=== PATIENT | male | born 1965 | race Caucasian/White ===

== ENCOUNTER 2017-01-04 23:11 | Observation (INO) | payer MEDICAID, MEDICARE ==
[~2017-01-04] VITALS: Ht 177.8 cm; Wt 120.2 kg
[~2017-01-04 23:11] MED LIST: AMLO10TA4 PO; ASPI-515 PO; CLOP75TA22 PO; LISI-170 PO; METO25TA9 PO; OMEP40CA6 PO; SIMV80TA3 PO
[2017-01-04 23:48] LABS: HEMOGLOBIN 13.2 g/dL (13.7-18.0)
[2017-01-04 23:59] LABS: ASPARTATE AMINO TRANSFERASE 19 U/L (15-37); BLOOD UREA NITROGEN 19 mg/dL (7-18)
[2017-01-05 00:02] LABS: ACETAMINOPHEN < 2 mcg/mL (10-30)
[2017-01-05 01:03] LABS: DAU SCREEN DISCLAIMER
[2017-01-05] MEDS ORDERED: SODIUM CHLORIDE 0.9% 1,000 ML IV ONE (01:26)
[2017-01-05] MEDS ORDERED: POLYETHYLENE GLYCOL 17 GM PACKET PO PRN (02:30)
[2017-01-05] MEDS ORDERED: DOCUSATE 100 MG CAPSULE PO PRN (02:30)
[2017-01-05] MEDS ORDERED: BISACODYL 10 MG SUPP PR PRN (02:30)
[2017-01-05 07:05] VITALS: BP 156/77
[2017-01-05] MEDS: AMLODIPINE 5 MG TABLET PO SCH (08:02)
[2017-01-05] MEDS: LISINOPRIL 20 MG TABLET PO SCH (08:03)
[2017-01-05] MEDS: METOPROLOL SUCCINATE 25 MG TAB.ER.24H PO SCH ×2 (08:03→19:45)
[2017-01-05] MEDS: NICOTINE 14MG/24 HR PATCH.TD24 TD SCH (08:03)
[2017-01-05] MEDS: OMEPRAZOLE 20 MG CAPSULE.DR PO SCH (08:03)
[2017-01-05 08:21] LABS: HEMOGLOBIN 12.5 g/dL (13.7-18.0)
[2017-01-05 17:50] VITALS: BP 149/89
[2017-01-05] MEDS: OXYcodone/APAP 5/325MG TABLET PO PRN ×3 (18:47→23:52)
[2017-01-05 19:03] VITALS: BP 134/89
[2017-01-05] MEDS: ATORVASTATIN 40 MG TABLET PO SCH (19:45)
[2017-01-06 01:55] VITALS: BP 151/88
[2017-01-06] MEDS: OXYcodone/APAP 5/325MG TABLET PO PRN ×4 (05:49→21:27)
[2017-01-06 06:46] VITALS: BP 158/87
[2017-01-06] MEDS: AMLODIPINE 5 MG TABLET PO SCH (08:47)
[2017-01-06] MEDS: OMEPRAZOLE 20 MG CAPSULE.DR PO SCH (08:47)
[2017-01-06] MEDS: METOPROLOL SUCCINATE 25 MG TAB.ER.24H PO SCH ×2 (08:47→21:00)
[2017-01-06] MEDS: LISINOPRIL 20 MG TABLET PO SCH (08:47)
[2017-01-06] MEDS: NICOTINE 14MG/24 HR PATCH.TD24 TD SCH (08:48)
[2017-01-06 13:00] VITALS: BP 141/95
[2017-01-06 16:18] VITALS: BP 153/88
[2017-01-06 19:31] VITALS: BP 158/88
[2017-01-06] MEDS: ATORVASTATIN 40 MG TABLET PO SCH (21:00)
[2017-01-06] MEDS: CYCLOBENZAPRINE 10 MG TABLET PO PRN (21:28)
[2017-01-07] MEDS: CYCLOBENZAPRINE 10 MG TABLET PO PRN ×3 (04:19→21:22)
[2017-01-07] MEDS: OXYcodone/APAP 5/325MG TABLET PO PRN ×3 (04:19→21:23)
[2017-01-07 08:01] VITALS: BP 124/83
[2017-01-07] MEDS: AMLODIPINE 5 MG TABLET PO SCH (08:49)
[2017-01-07] MEDS: OMEPRAZOLE 20 MG CAPSULE.DR PO SCH (08:50)
[2017-01-07] MEDS: LISINOPRIL 20 MG TABLET PO SCH (08:50)
[2017-01-07] MEDS: NICOTINE 14MG/24 HR PATCH.TD24 TD SCH (08:51)
[2017-01-07] MEDS: METOPROLOL SUCCINATE 25 MG TAB.ER.24H PO SCH ×2 (08:51→21:00)
[2017-01-07] MEDS ORDERED: RIVAROXABAN 20 MG TABLET PO SCH (17:00)
[2017-01-07 19:37] VITALS: BP 110/70
[2017-01-07] MEDS: ATORVASTATIN 40 MG TABLET PO SCH (21:00)
[2017-01-08 07:17] VITALS: BP 145/85
[2017-01-08] MEDS: AMLODIPINE 5 MG TABLET PO SCH (08:50)
[2017-01-08] MEDS: METOPROLOL SUCCINATE 25 MG TAB.ER.24H PO SCH ×2 (08:51→21:00)
[2017-01-08] MEDS: LISINOPRIL 20 MG TABLET PO SCH (08:51)
[2017-01-08] MEDS: NICOTINE 14MG/24 HR PATCH.TD24 TD SCH (08:51)
[2017-01-08] MEDS: OMEPRAZOLE 20 MG CAPSULE.DR PO SCH (08:51)
[2017-01-08] MEDS: RIVAROXABAN 15 MG TABLET PO SCH ×2 (10:00→21:00)
[2017-01-08] MEDS: CYCLOBENZAPRINE 10 MG TABLET PO PRN ×2 (11:00→22:05)
[2017-01-08] MEDS: OXYcodone/APAP 5/325MG TABLET PO PRN ×2 (11:00→22:06)
[2017-01-08 20:00] VITALS: BP 150/84
[2017-01-08] MEDS: ATORVASTATIN 40 MG TABLET PO SCH (21:00)
[2017-01-09 07:15] VITALS: BP 141/86
[2017-01-09] MEDS: AMLODIPINE 5 MG TABLET PO SCH (09:00)
[2017-01-09] MEDS: NICOTINE 14MG/24 HR PATCH.TD24 TD SCH (09:00)
[2017-01-09] MEDS: RIVAROXABAN 15 MG TABLET PO SCH (09:00)
[2017-01-09] MEDS: METOPROLOL SUCCINATE 25 MG TAB.ER.24H PO SCH (09:00)
[2017-01-09] MEDS: LISINOPRIL 20 MG TABLET PO SCH (09:00)
[2017-01-09] MEDS: OMEPRAZOLE 20 MG CAPSULE.DR PO SCH (09:06)
[2017-01-09] MEDS ORDERED: ENOXAPARIN 120MG/0.8ML SQ SCH ×2 (12:00→16:09)
[2017-01-09] MEDS ORDERED: HALOPERIDOL 5 MG/ML IM PRN (12:00)
[2017-01-09] MEDS ORDERED: LORazepam 2 MG/ML, 1ML IM PRN (12:00)
[2017-01-09] MEDS: LORazepam 1MG TABLET PO PRN ×2 (12:57→21:54)
[2017-01-09 13:41] LABS: BLOOD UREA NITROGEN 16 mg/dL (7-18)
[2017-01-09 13:44] LABS: ASPARTATE AMINO TRANSFERASE 11 U/L (15-37)
[2017-01-09 13:47] LABS: HEMOGLOBIN 13.8 g/dL (13.7-18.0)
[2017-01-09] MEDS: ONDANSETRON ODT 4 MG PO PRN (14:09)
[2017-01-09] MEDS: OXYcodone/APAP 5/325MG TABLET PO PRN ×2 (14:09→20:45)
[2017-01-09 14:17] LABS: DIFF TOTAL CELLS COUNTED 100 CELL DIFF
[2017-01-09 14:19] LABS: ANISOCYTOSIS 1+; VERIFY COUNTS? YES
[2017-01-09] MEDS: CYCLOBENZAPRINE 10 MG TABLET PO PRN (15:53)
[2017-01-09 17:51] VITALS: BP 140/82
[2017-01-09 19:10] VITALS: BP 144/80
[2017-01-09] MEDS: ATORVASTATIN 40 MG TABLET PO SCH (21:48)
[2017-01-09] MEDS: METOPROLOL TARTRATE 25 MG TABLET PO SCH (22:23)
[2017-01-10] MEDS ORDERED: ENOXAPARIN 120MG/0.8ML SQ SCH
[2017-01-10] MEDS: OXYcodone/APAP 5/325MG TABLET PO PRN ×2 (01:59→17:46)
[2017-01-10] MEDS: CYCLOBENZAPRINE 10 MG TABLET PO PRN ×2 (02:00→17:46)
[2017-01-10] MEDS: ALUMINUM/MAG/SIMETHICONE 30 ML UDC PO PRN (03:32)
[2017-01-10] MEDS: LORazepam 1MG TABLET PO PRN ×3 (05:20→20:30)
[2017-01-10] MEDS: ONDANSETRON ODT 4 MG PO PRN (08:22)
[2017-01-10] MEDS: METOPROLOL TARTRATE 25 MG TABLET PO SCH ×2 (08:23→20:25)
[2017-01-10] MEDS: METHOCARBAMOL 750 MG TABLET PO PRN (08:23)
[2017-01-10] MEDS: ENOXAPARIN 120MG/0.8ML SQ SCH ×2 (08:24→21:00)
[2017-01-10] MEDS: AMLODIPINE 5 MG TABLET PO SCH (08:38)
[2017-01-10] MEDS: LISINOPRIL 20 MG TABLET PO SCH (08:38)
[2017-01-10] MEDS: NICOTINE 14MG/24 HR PATCH.TD24 TD SCH (09:00)
[2017-01-10] MEDS: OMEPRAZOLE 20 MG CAPSULE.DR PO SCH (09:00)
[2017-01-10 09:12] VITALS: BP 136/82
[2017-01-10 09:41] VITALS: BP 122/68
[2017-01-10 19:45] VITALS: BP 130/89
[2017-01-10] MEDS: ATORVASTATIN 40 MG TABLET PO SCH (20:25)
[2017-01-11] MEDS: OXYcodone/APAP 5/325MG TABLET PO PRN ×3 (03:14→20:18)
[2017-01-11] MEDS: CYCLOBENZAPRINE 10 MG TABLET PO PRN ×3 (03:17→20:18)
[2017-01-11] MEDS: ALUMINUM/MAG/SIMETHICONE 30 ML UDC PO PRN (03:19)
[2017-01-11] MEDS: LISINOPRIL 20 MG TABLET PO SCH (08:26)
[2017-01-11] MEDS: METOPROLOL TARTRATE 25 MG TABLET PO SCH ×2 (08:26→20:16)
[2017-01-11] MEDS: OMEPRAZOLE 20 MG CAPSULE.DR PO SCH (08:26)
[2017-01-11] MEDS: ENOXAPARIN 120MG/0.8ML SQ SCH ×2 (08:26→20:17)
[2017-01-11] MEDS: AMLODIPINE 5 MG TABLET PO SCH (08:26)
[2017-01-11] MEDS: NICOTINE 14MG/24 HR PATCH.TD24 TD SCH (08:28)
[2017-01-11 08:56] VITALS: BP 145/91
[2017-01-11] MEDS: LORazepam 1MG TABLET PO PRN ×2 (14:57→21:54)
[2017-01-11 19:20] VITALS: BP 144/86
[2017-01-11] MEDS: ATORVASTATIN 40 MG TABLET PO SCH (20:16)
[2017-01-11 22:51] VITALS: BP 158/93
[2017-01-12] MEDS: OXYcodone/APAP 5/325MG TABLET PO PRN ×4 (00:48→20:36)
[2017-01-12 02:44] VITALS: BP 144/84
[2017-01-12 03:12] VITALS: BP 132/81
[2017-01-12] MEDS: LORazepam 1MG TABLET PO PRN ×2 (03:27→08:03)
[2017-01-12] MEDS: CYCLOBENZAPRINE 10 MG TABLET PO PRN ×2 (05:49→14:41)
[2017-01-12 05:53] VITALS: BP 143/83
[2017-01-12 07:39] VITALS: BP 127/77
[2017-01-12] MEDS: AMLODIPINE 5 MG TABLET PO SCH (08:02)
[2017-01-12] MEDS: LISINOPRIL 20 MG TABLET PO SCH (08:02)
[2017-01-12] MEDS: METOPROLOL TARTRATE 25 MG TABLET PO SCH ×2 (08:02→20:35)
[2017-01-12] MEDS: OMEPRAZOLE 20 MG CAPSULE.DR PO SCH (08:02)
[2017-01-12] MEDS: ENOXAPARIN 120MG/0.8ML SQ SCH ×2 (08:02→20:36)
[2017-01-12] MEDS: NICOTINE 14MG/24 HR PATCH.TD24 TD SCH (08:03)
[2017-01-12] MEDS ORDERED: HALOPERIDOL 5 MG TABLET PO PRN (08:30)
[2017-01-12 17:10] LABS: HEMOGLOBIN 12.6 g/dL (13.7-18.0)
[2017-01-12 17:11] LABS: DIFF TOTAL CELLS COUNTED 100 CELL DIFF
[2017-01-12 17:12] LABS: BLOOD UREA NITROGEN 13 mg/dL (7-18)
[2017-01-12 17:14] LABS: ANISOCYTOSIS 1+; VERIFY COUNTS? YES
[2017-01-12 17:16] LABS: IS PT STATUS REG ER OR PRE ER? NO
[2017-01-12 19:41] VITALS: BP 132/84
[2017-01-12] MEDS: ATORVASTATIN 40 MG TABLET PO SCH (20:35)
[2017-01-13] MEDS: CYCLOBENZAPRINE 10 MG TABLET PO PRN ×3 (00:08→19:37)
[2017-01-13] MEDS: LORazepam 1MG TABLET PO PRN ×2 (00:13→23:58)
[2017-01-13 00:14] VITALS: BP 129/87
[2017-01-13] MEDS: OXYcodone/APAP 5/325MG TABLET PO PRN ×5 (00:49→21:48)
[2017-01-13] MEDS ORDERED: OXYcodone IR 5MG TABLET PO ONE (04:30)
[2017-01-13] MEDS ORDERED: OXYcodone 5 MG/5 ML ORAL.SOL UDC PO PRN (04:30)
[2017-01-13 08:00] VITALS: BP 142/87
[2017-01-13] MEDS: LISINOPRIL 20 MG TABLET PO SCH (09:35)
[2017-01-13] MEDS: AMLODIPINE 5 MG TABLET PO SCH (09:35)
[2017-01-13] MEDS: METOPROLOL TARTRATE 25 MG TABLET PO SCH ×2 (09:35→19:37)
[2017-01-13] MEDS: ENOXAPARIN 120MG/0.8ML SQ SCH ×2 (09:36→19:39)
[2017-01-13] MEDS: OMEPRAZOLE 20 MG CAPSULE.DR PO SCH (09:36)
[2017-01-13] MEDS: NICOTINE 14MG/24 HR PATCH.TD24 TD SCH (09:38)
[2017-01-13] MEDS: AMOXICILLIN/CLAV 875-125MG TABLET PO SCH ×2 (10:40→19:37)
[2017-01-13] MEDS: DOXYCYCLINE 100MG TABLET PO SCH ×2 (11:15→19:37)
[2017-01-13 19:16] VITALS: BP 117/72
[2017-01-13] MEDS: ATORVASTATIN 40 MG TABLET PO SCH (19:37)
[2017-01-14] MEDS: OXYcodone/APAP 5/325MG TABLET PO PRN ×3 (02:48→19:25)
[2017-01-14] MEDS: METHOCARBAMOL 750 MG TABLET PO PRN (04:15)
[2017-01-14 05:52] LABS: HEMOGLOBIN 11.9 g/dL (13.7-18.0)
[2017-01-14 06:18] LABS: ASPARTATE AMINO TRANSFERASE 24 U/L (15-37); BLOOD UREA NITROGEN 16 mg/dL (7-18)
[2017-01-14 08:10] VITALS: BP 130/85
[2017-01-14] MEDS: AMLODIPINE 5 MG TABLET PO SCH (08:50)
[2017-01-14] MEDS: OMEPRAZOLE 20 MG CAPSULE.DR PO SCH (08:50)
[2017-01-14] MEDS: LISINOPRIL 20 MG TABLET PO SCH (08:50)
[2017-01-14] MEDS: METOPROLOL TARTRATE 25 MG TABLET PO SCH ×2 (08:51→19:21)
[2017-01-14] MEDS: AMOXICILLIN/CLAV 875-125MG TABLET PO SCH ×2 (08:51→19:21)
[2017-01-14] MEDS: DOXYCYCLINE 100MG TABLET PO SCH ×2 (08:51→19:21)
[2017-01-14] MEDS: NICOTINE 14MG/24 HR PATCH.TD24 TD SCH (09:00)
[2017-01-14] MEDS: ENOXAPARIN 120MG/0.8ML SQ SCH ×2 (09:00→20:36)
[2017-01-14 19:17] VITALS: BP 120/78
[2017-01-14] MEDS: ATORVASTATIN 40 MG TABLET PO SCH (19:21)
[2017-01-14] MEDS: CYCLOBENZAPRINE 10 MG TABLET PO PRN (20:36)
[2017-01-15 05:28] LABS: HEMOGLOBIN 12.6 g/dL (13.7-18.0)
[2017-01-15 07:55] VITALS: BP 123/86
[2017-01-15] MEDS: AMOXICILLIN/CLAV 875-125MG TABLET PO SCH ×2 (08:54→21:36)
[2017-01-15] MEDS: DOXYCYCLINE 100MG TABLET PO SCH ×2 (08:55→21:36)
[2017-01-15] MEDS: AMLODIPINE 5 MG TABLET PO SCH (08:55)
[2017-01-15] MEDS: LISINOPRIL 20 MG TABLET PO SCH (08:55)
[2017-01-15] MEDS: OMEPRAZOLE 20 MG CAPSULE.DR PO SCH (08:55)
[2017-01-15] MEDS: METOPROLOL TARTRATE 25 MG TABLET PO SCH ×2 (08:55→21:36)
[2017-01-15] MEDS: ENOXAPARIN 120MG/0.8ML SQ SCH ×2 (08:59→21:39)
[2017-01-15] MEDS: NICOTINE 14MG/24 HR PATCH.TD24 TD SCH (09:00)
[2017-01-15] MEDS: LACTOBACILLUS CHEW TABLET PO SCH ×2 (11:24→17:32)
[2017-01-15] MEDS: CYCLOBENZAPRINE 10 MG TABLET PO PRN ×2 (13:13→23:10)
[2017-01-15] MEDS: OXYcodone/APAP 5/325MG TABLET PO PRN ×2 (13:13→23:09)
[2017-01-15 19:27] VITALS: BP 128/75
[2017-01-15] MEDS: ATORVASTATIN 40 MG TABLET PO SCH (21:38)
[2017-01-16 08:27] VITALS: BP 100/65
[2017-01-16] MEDS: LACTOBACILLUS CHEW TABLET PO SCH ×3 (08:36→16:40)
[2017-01-16] MEDS: OMEPRAZOLE 20 MG CAPSULE.DR PO SCH (08:37)
[2017-01-16] MEDS: METOPROLOL TARTRATE 25 MG TABLET PO SCH ×2 (08:37→20:18)
[2017-01-16] MEDS: LISINOPRIL 20 MG TABLET PO SCH (08:37)
[2017-01-16] MEDS: AMOXICILLIN/CLAV 875-125MG TABLET PO SCH ×2 (08:38→20:18)
[2017-01-16] MEDS: AMLODIPINE 5 MG TABLET PO SCH (08:38)
[2017-01-16] MEDS: DOXYCYCLINE 100MG TABLET PO SCH ×2 (08:38→20:18)
[2017-01-16] MEDS: NICOTINE 14MG/24 HR PATCH.TD24 TD SCH (08:39)
[2017-01-16] MEDS: ENOXAPARIN 120MG/0.8ML SQ SCH ×2 (08:40→20:23)
[2017-01-16] MEDS: CYCLOBENZAPRINE 10 MG TABLET PO PRN (13:30)
[2017-01-16] MEDS: OXYcodone/APAP 5/325MG TABLET PO PRN ×2 (15:26→20:19)
[2017-01-16 19:24] VITALS: BP 106/75
[2017-01-16] MEDS: ATORVASTATIN 40 MG TABLET PO SCH (20:19)
[2017-01-17] MEDS: OXYcodone/APAP 5/325MG TABLET PO PRN ×3 (04:06→21:04)
[2017-01-17] MEDS: CYCLOBENZAPRINE 10 MG TABLET PO PRN ×3 (04:06→21:03)
[2017-01-17 07:50] VITALS: BP 122/81
[2017-01-17] MEDS: LACTOBACILLUS CHEW TABLET PO SCH ×3 (08:33→17:00)
[2017-01-17] MEDS: DOXYCYCLINE 100MG TABLET PO SCH ×2 (08:34→21:03)
[2017-01-17] MEDS: AMOXICILLIN/CLAV 875-125MG TABLET PO SCH ×2 (08:34→21:02)
[2017-01-17] MEDS: LISINOPRIL 20 MG TABLET PO SCH (08:34)
[2017-01-17] MEDS: METOPROLOL TARTRATE 25 MG TABLET PO SCH ×2 (08:35→21:03)
[2017-01-17] MEDS: OMEPRAZOLE 20 MG CAPSULE.DR PO SCH (08:35)
[2017-01-17] MEDS: AMLODIPINE 5 MG TABLET PO SCH (08:35)
[2017-01-17] MEDS: ENOXAPARIN 120MG/0.8ML SQ SCH ×2 (08:37→21:07)
[2017-01-17] MEDS: NICOTINE 14MG/24 HR PATCH.TD24 TD SCH (08:43)
[2017-01-17 19:43] VITALS: BP 136/77
[2017-01-17] MEDS: ATORVASTATIN 40 MG TABLET PO SCH (21:08)
[2017-01-18 08:40] VITALS: BP 126/84
[2017-01-18] MEDS: DOXYCYCLINE 100MG TABLET PO SCH ×2 (08:54→21:35)
[2017-01-18] MEDS: LISINOPRIL 20 MG TABLET PO SCH (08:54)
[2017-01-18] MEDS: OXYcodone/APAP 5/325MG TABLET PO PRN ×2 (08:54→17:34)
[2017-01-18] MEDS: AMOXICILLIN/CLAV 875-125MG TABLET PO SCH ×2 (08:54→21:35)
[2017-01-18] MEDS: CYCLOBENZAPRINE 10 MG TABLET PO PRN ×2 (08:54→17:33)
[2017-01-18] MEDS: AMLODIPINE 5 MG TABLET PO SCH (08:54)
[2017-01-18] MEDS: OMEPRAZOLE 20 MG CAPSULE.DR PO SCH (08:55)
[2017-01-18] MEDS: LACTOBACILLUS CHEW TABLET PO SCH ×3 (08:55→17:33)
[2017-01-18] MEDS: METOPROLOL TARTRATE 25 MG TABLET PO SCH ×2 (08:55→21:35)
[2017-01-18] MEDS: ENOXAPARIN 120MG/0.8ML SQ SCH (08:58)
[2017-01-18] MEDS: NICOTINE 14MG/24 HR PATCH.TD24 TD SCH (09:00)
[2017-01-18 19:43] VITALS: BP 135/82
[2017-01-18] MEDS: APIXABAN 5 MG TABLET PO SCH (21:35)
[2017-01-18] MEDS: ATORVASTATIN 40 MG TABLET PO SCH (21:35)
[2017-01-19 07:45] VITALS: BP 145/93
[2017-01-19] MEDS: DOXYCYCLINE 100MG TABLET PO SCH (08:52)
[2017-01-19] MEDS: OMEPRAZOLE 20 MG CAPSULE.DR PO SCH (08:53)
[2017-01-19] MEDS: METOPROLOL TARTRATE 25 MG TABLET PO SCH (08:53)
[2017-01-19] MEDS: LISINOPRIL 20 MG TABLET PO SCH (08:53)
[2017-01-19] MEDS: LACTOBACILLUS CHEW TABLET PO SCH ×2 (08:54→12:31)
[2017-01-19] MEDS: APIXABAN 5 MG TABLET PO SCH (08:54)
[2017-01-19] MEDS: AMOXICILLIN/CLAV 875-125MG TABLET PO SCH (08:54)
[2017-01-19] MEDS: NICOTINE 14MG/24 HR PATCH.TD24 TD SCH (08:55)
[2017-01-19] MEDS: AMLODIPINE 5 MG TABLET PO SCH (09:04)
[2017-01-19] MEDS: OXYcodone/APAP 5/325MG TABLET PO PRN (12:56)
[2017-01-19] MEDS: CYCLOBENZAPRINE 10 MG TABLET PO PRN (12:56)
[2017-01-19] MEDS ORDERED: AMOX1TAB12 PO (13:27)
[2017-01-19] MEDS ORDERED: ACID1TAB7 PO (13:27)
[2017-01-19] MEDS ORDERED: DOXY100T PO (13:27)
[2017-01-19] MEDS ORDERED: NICO1PAT4 TD (13:27)
[2017-01-19] MEDS ORDERED: APIX5TAB PO (13:27)
== END 2017-01-19 13:17 ==
LOC: ED 23:59 → EDIP 01-05 01:52 → 4NOR 01-05 02:50 → 3E 01-06 16:07
PROVIDERS: ADMIT Internal Medicine; ATTEND Internal Medicine
DX: T45.511A Poisoning by anticoagulants, accidental (unintentional), initial encounter (principal); I25.10 Atherosclerotic heart disease of native coronary artery without angina pectoris; K21.9 Gastro-esophageal reflux disease without esophagitis; E78.5 Hyperlipidemia, unspecified; I10 Essential (primary) hypertension; D72.828 Other elevated white blood cell count; E87.1 Hypo-osmolality and hyponatremia; F10.20 Alcohol dependence, uncomplicated; F17.210 Nicotine dependence, cigarettes, uncomplicated; F32.9 Major depressive disorder, single episode, unspecified; Z86.711 Personal history of pulmonary embolism; Z90.49 Acquired absence of other specified parts of digestive tract; Z95.5 Presence of coronary angioplasty implant and graft; Z82.49 Family history of ischemic heart disease and other diseases of the circulatory system; Z83.3 Family history of diabetes mellitus
CPT/HCPCS: 36415; 70450; 71010; 76882; 80048; 80053; 80307; 80329; 81001; 84484; 85014; 85018; 85025; 85610; 85730; 87040; 93005; 93926; 93971; 96372; 99285; G0378; J1650; J7509; Q0162; G0480

== ENCOUNTER 2017-01-25 22:28 | Emergency (ER) | payer MEDICARE ==
[~2017-01-25 22:28] MED LIST changes: +ACID1TAB7 PO; +AMOX1TAB12 PO; +APIX5TAB PO; +DOXY100T PO; +NICO1PAT4 TD
[2017-01-25] MEDS ORDERED: ASPIRIN 81 MG TABLET CHEW PO ONE (23:00)
[2017-01-25] MEDS ORDERED: ONDANSETRON 2MG/ML, 2ML IVPush ONE (23:30)
[2017-01-25] MEDS ORDERED: HYDROmorphone 1 MG/ML, 1ML IV ONE (23:30)
[2017-01-25 23:43] LABS: BLOOD UREA NITROGEN 16 mg/dL (7-18)
[2017-01-25 23:49] LABS: ASPARTATE AMINO TRANSFERASE 23 U/L (15-37); IS PT STATUS REG ER OR PRE ER? YES
[2017-01-26] MEDS ORDERED: HYDROmorphone 1 MG/ML, 1ML ONE (00:05)
[2017-01-26] MEDS ORDERED: ONDANSETRON 2MG/ML, 2ML ONE (00:05)
[2017-01-26] MEDS ORDERED: DULO30CA2 PO (00:15)
[2017-01-26 03:21] VITALS: BP 144/83
== END 2017-01-26 03:25 ==
LOC: ED 23:33
DX: R07.2 Precordial pain (principal); I26.99 Other pulmonary embolism without acute cor pulmonale; K21.9 Gastro-esophageal reflux disease without esophagitis; E78.5 Hyperlipidemia, unspecified; I25.10 Atherosclerotic heart disease of native coronary artery without angina pectoris; Z86.711 Personal history of pulmonary embolism
CPT/HCPCS: 36415; 71010; 80053; 84484; 85025; 93005; 96374; 96375; 99285; J1170; J2405

== ENCOUNTER 2017-02-06 11:56 | Inpatient (IN) | payer MEDICARE, MEDICAID ==
[~2017-02-06] VITALS: Ht 177.8 cm; Wt 127.1 kg
[~2017-02-06 11:56] MED LIST changes: +DULO30CA2 PO
[2017-02-06] MEDS ORDERED: SODIUM CHLORIDE 0.9% 1,000 ML IV ONE (12:36)
[2017-02-06] MEDS ORDERED: LORazepam 2 MG/ML, 1ML ONE (12:50)
[2017-02-06] MEDS ORDERED: LORazepam 2 MG/ML, 1ML IM ONE (13:00)
[2017-02-06] MEDS ORDERED: SODIUM CHLORIDE FLUSH 10ML SYR IVF ONE (13:00)
[2017-02-06 13:10] LABS: BLOOD UREA NITROGEN 17 mg/dL (7-18)
[2017-02-06 13:16] LABS: ASPARTATE AMINO TRANSFERASE 19 U/L (15-37)
[2017-02-06 13:17] LABS: IS PT STATUS REG ER OR PRE ER? YES
[2017-02-06] MEDS ORDERED: SODIUM CHLORIDE 0.9% 1,000ML IVBOLUS ONE (13:30)
[2017-02-06] MEDS ORDERED: APIXABAN 5 MG TABLET PO ONE (13:30)
[2017-02-06] MEDS ORDERED: HYDROmorphone 2 MG/ML, 1ML IVPush ONE (13:30)
[2017-02-06] MEDS ORDERED: DIPHENHYDRAMINE 25 MG CAPSULE PO ONE (13:30)
[2017-02-06] MEDS ORDERED: methylPREDNISolone SOD SUCC 125 MG/2 ML IVPush ONE (13:30)
[2017-02-06] MEDS ORDERED: MAGNESIUM SULFATE PMX 2GM/50ML 50 ML IV ONE ×2 (13:30→21:00)
[2017-02-06] MEDS ORDERED: HYDROmorphone 1 MG/ML, 1ML ONE (13:31)
[2017-02-06] MEDS ORDERED: DIPHENHYDRAMINE 25 MG CAPSULE ONE (13:31)
[2017-02-06] MEDS ORDERED: methylPREDNISolone SOD SUCC 125 MG/2 ML ONE (13:32)
[2017-02-06] MEDS ORDERED: DIPHENHYDRAMINE 50 MG/ML, 1ML ONE (14:17)
[2017-02-06] MEDS ORDERED: DIPHENHYDRAMINE 50 MG/ML, 1ML IVPush ONE ×2 (14:30)
[2017-02-06 14:44] LABS: ACETAMINOPHEN < 2 mcg/mL (10-30)
[2017-02-06] MEDS ORDERED: PRAZ2CAP2 PO (14:50)
[2017-02-06] MEDS ORDERED: ONDANSETRON 2MG/ML, 2ML ONE (14:53)
[2017-02-06] MEDS ORDERED: ACETAMINOPHEN 650 MG/20.3 ML UDC PO PRN (15:00)
[2017-02-06] MEDS ORDERED: ONDANSETRON 2MG/ML, 2ML IVP PRN (15:00)
[2017-02-06] MEDS ORDERED: NITROGLYCERIN SINGLE TAB 0.4 MG SL PRN (15:00)
[2017-02-06] MEDS ORDERED: SODIUM CHLORIDE 0.9% 1,000 ML IV SCH (15:01)
[2017-02-06 15:44] VITALS: BP 138/81
[2017-02-06] MEDS ORDERED: HYDROmorphone 1 MG/ML, 1ML IV ONE ×2 (17:00→19:30)
[2017-02-06] MEDS ORDERED: HYDROmorphone 1 MG/ML, 1ML IM ONE ×2 (17:00→18:30)
[2017-02-06] MEDS ORDERED: HYDROcodone/APAP 5/325 TABLET PO PRN (18:30)
[2017-02-06] MEDS ORDERED: HYDROcodone/APAP 10/325 MG TABLET ONE (18:38)
[2017-02-06] MEDS: HYDROcodone/APAP 10/325 MG TABLET PO PRN (18:43)
[2017-02-06] MEDS: HYDROmorphone 1 MG/ML, 1ML IV PRN ×2 (18:50→23:22)
[2017-02-06 19:33] VITALS: BP 137/87
[2017-02-06 19:37] LABS: IS PT STATUS REG ER OR PRE ER? NO
[2017-02-06] MEDS ORDERED: DULOXETINE 30 MG CAPSULE.DR PO SCH (21:00)
[2017-02-06] MEDS ORDERED: SODIUM CHLORIDE FLUSH 10ML SYR IVF SCH (21:00)
[2017-02-06] MEDS: METOPROLOL SUCCINATE 25 MG TAB.ER.24H PO SCH (21:14)
[2017-02-06] MEDS: MAGNESIUM OXIDE 400 MG TABLET PO SCH (21:15)
[2017-02-06] MEDS: APIXABAN 5 MG TABLET PO SCH (21:15)
[2017-02-06] MEDS: SIMVASTATIN 40 MG TABLET PO SCH (21:15)
[2017-02-06] MEDS: NICOTINE 7 MG/24 HR PATCH.TD24 TD SCH (21:15)
[2017-02-06] MEDS: LORazepam 1MG TABLET PO PRN (21:16)
[2017-02-06 23:36] LABS: DAU SCREEN DISCLAIMER
[2017-02-06 23:43] LABS: PATH.CAST-FLAG NOT PRESENT; SPERM-FLAG NOT PRESENT; SRC-FLAG NOT PRESENT; XTAL-FLAG NOT PRESENT; YLC-FLAG NOT PRESENT
[2017-02-07] MEDS ORDERED: DIPHENHYDRAMINE 50 MG CAPSULE PO ONE
[2017-02-07] MEDS ORDERED: DIPHENHYDRAMINE 25 MG CAPSULE ONE (00:09)
[2017-02-07 00:56] VITALS: BP 142/99
[2017-02-07] MEDS: HYDROmorphone 1 MG/ML, 1ML IV PRN ×3 (03:21→11:39)
[2017-02-07] MEDS ORDERED: DIPHENHYDRAMINE 50 MG/ML, 1ML IVPush ONE (04:00)
[2017-02-07] MEDS: HYDROcodone/APAP 10/325 MG TABLET PO PRN ×3 (04:46→21:03)
[2017-02-07] MEDS: LORazepam 1MG TABLET PO PRN ×2 (04:47→18:00)
[2017-02-07] MEDS: methylPREDNISolone SOD SUCC 125 MG/2 ML IVPush SCH ×2 (06:06→11:40)
[2017-02-07] MEDS: ALUMINUM/MAG/SIMETHICONE 30 ML UDC PO PRN ×2 (06:07→21:03)
[2017-02-07] MEDS: ASPIRIN 81 MG TABLET EC PO SCH (06:15)
[2017-02-07 07:23] VITALS: BP 150/107
[2017-02-07] MEDS: OMEPRAZOLE 20 MG CAPSULE.DR PO SCH (08:39)
[2017-02-07] MEDS: MAGNESIUM OXIDE 400 MG TABLET PO SCH ×2 (08:39→21:02)
[2017-02-07] MEDS: AMLODIPINE 5 MG TABLET PO SCH (08:39)
[2017-02-07] MEDS: METOPROLOL SUCCINATE 25 MG TAB.ER.24H PO SCH ×2 (08:40→21:03)
[2017-02-07] MEDS: APIXABAN 5 MG TABLET PO SCH ×2 (08:40→21:02)
[2017-02-07] MEDS: LISINOPRIL 20 MG TABLET PO SCH (08:40)
[2017-02-07 13:00] VITALS: BP 139/89
[2017-02-07] MEDS ORDERED: DIPHENHYDRAMINE 25 MG CAPSULE PO PRN (13:00)
[2017-02-07] MEDS ORDERED: LORazepam 2 MG/ML, 1ML IVPush ONE ×2 (16:00→23:00)
[2017-02-07 19:08] VITALS: BP 136/80
[2017-02-07] MEDS: NICOTINE 7 MG/24 HR PATCH.TD24 TD SCH (21:02)
[2017-02-07] MEDS: SIMVASTATIN 40 MG TABLET PO SCH (21:03)
[2017-02-07] MEDS ORDERED: LORazepam 2 MG/ML, 1ML ONE (22:56)
[2017-02-08] MEDS ORDERED: ONDANSETRON 2MG/ML, 2ML IVPush PRN
[2017-02-08] MEDS ORDERED: HYDROmorphone 1 MG/ML, 1ML IV ONE
[2017-02-08 01:11] VITALS: BP 136/81
[2017-02-08] MEDS ORDERED: DIPHENHYDRAMINE 50 MG/ML, 1ML IVPush ONE (02:00)
[2017-02-08 08:05] VITALS: BP 122/69
[2017-02-08] MEDS: MAGNESIUM OXIDE 400 MG TABLET PO SCH ×2 (09:51→20:43)
[2017-02-08] MEDS: ASPIRIN 81 MG TABLET EC PO SCH (09:51)
[2017-02-08] MEDS: OMEPRAZOLE 20 MG CAPSULE.DR PO SCH (09:52)
[2017-02-08] MEDS: AMLODIPINE 5 MG TABLET PO SCH (09:52)
[2017-02-08] MEDS: LISINOPRIL 20 MG TABLET PO SCH (09:52)
[2017-02-08] MEDS: METOPROLOL SUCCINATE 25 MG TAB.ER.24H PO SCH ×2 (09:52→20:42)
[2017-02-08] MEDS: APIXABAN 5 MG TABLET PO SCH ×2 (09:53→20:42)
[2017-02-08 14:25] VITALS: BP 110/58
[2017-02-08 19:23] VITALS: BP 127/77
[2017-02-08] MEDS: SIMVASTATIN 40 MG TABLET PO SCH (20:43)
[2017-02-08] MEDS: HYDROcodone/APAP 10/325 MG TABLET PO PRN (20:43)
[2017-02-08] MEDS: NICOTINE 7 MG/24 HR PATCH.TD24 TD SCH (21:00)
[2017-02-09 03:03] VITALS: BP 105/61
[2017-02-09] MEDS: ASPIRIN 81 MG TABLET EC PO SCH (05:41)
[2017-02-09] MEDS: AMLODIPINE 5 MG TABLET PO SCH ×2 (08:16→08:19)
[2017-02-09] MEDS: APIXABAN 5 MG TABLET PO SCH ×2 (08:16→20:52)
[2017-02-09] MEDS: OMEPRAZOLE 20 MG CAPSULE.DR PO SCH (08:16)
[2017-02-09] MEDS: METOPROLOL SUCCINATE 25 MG TAB.ER.24H PO SCH ×3 (08:16→20:52)
[2017-02-09] MEDS: MAGNESIUM OXIDE 400 MG TABLET PO SCH ×2 (08:16→20:52)
[2017-02-09] MEDS: LISINOPRIL 20 MG TABLET PO SCH ×2 (08:16→08:19)
[2017-02-09] MEDS: HYDROcodone/APAP 10/325 MG TABLET PO PRN ×2 (10:59→17:44)
[2017-02-09 19:43] VITALS: BP 133/87
[2017-02-09] MEDS: SIMVASTATIN 40 MG TABLET PO SCH (20:52)
[2017-02-09] MEDS: NICOTINE 7 MG/24 HR PATCH.TD24 TD SCH (20:52)
[2017-02-10 01:52] VITALS: BP 125/79
[2017-02-10] MEDS: HYDROcodone/APAP 10/325 MG TABLET PO PRN ×2 (04:13→14:57)
[2017-02-10 07:01] VITALS: BP 103/65
[2017-02-10] MEDS: LISINOPRIL 20 MG TABLET PO SCH (09:00)
[2017-02-10] MEDS: MAGNESIUM OXIDE 400 MG TABLET PO SCH ×2 (09:36→20:39)
[2017-02-10] MEDS: APIXABAN 5 MG TABLET PO SCH ×2 (09:36→20:38)
[2017-02-10] MEDS: ASPIRIN 81 MG TABLET EC PO SCH (09:36)
[2017-02-10] MEDS: AMLODIPINE 5 MG TABLET PO SCH (09:37)
[2017-02-10] MEDS: OMEPRAZOLE 20 MG CAPSULE.DR PO SCH (09:37)
[2017-02-10] MEDS: METOPROLOL SUCCINATE 25 MG TAB.ER.24H PO SCH ×2 (09:37→20:39)
[2017-02-10 15:21] LABS: BLOOD UREA NITROGEN 20 mg/dL (7-18)
[2017-02-10 15:24] VITALS: BP 115/79
[2017-02-10 15:24] LABS: ASPARTATE AMINO TRANSFERASE 103 U/L (15-37)
[2017-02-10 18:54] VITALS: BP 157/77
[2017-02-10] MEDS: NICOTINE 7 MG/24 HR PATCH.TD24 TD SCH (20:41)
[2017-02-10] MEDS ORDERED: TRAZODONE 50MG TABLET PO SCH (21:00)
[2017-02-10] MEDS ORDERED: PRAZOSIN 1 MG CAPSULE PO SCH (21:00)
[2017-02-10] MEDS: OXYcodone/APAP 10/325MG TABLET PO PRN (21:29)
[2017-02-11 01:25] VITALS: BP 123/84
[2017-02-11] MEDS: APIXABAN 5 MG TABLET PO SCH ×2 (09:52→21:10)
[2017-02-11] MEDS: MAGNESIUM OXIDE 400 MG TABLET PO SCH ×2 (09:52→21:10)
[2017-02-11] MEDS: ASPIRIN 81 MG TABLET EC PO SCH (09:52)
[2017-02-11] MEDS: SERTRALINE 50MG TABLET PO SCH (09:53)
[2017-02-11] MEDS: OMEPRAZOLE 20 MG CAPSULE.DR PO SCH (09:53)
[2017-02-11] MEDS: LISINOPRIL 20 MG TABLET PO SCH (09:53)
[2017-02-11] MEDS: METOPROLOL SUCCINATE 25 MG TAB.ER.24H PO SCH ×2 (09:53→21:10)
[2017-02-11] MEDS: AMLODIPINE 5 MG TABLET PO SCH (09:53)
[2017-02-11] MEDS: OXYcodone/APAP 10/325MG TABLET PO PRN ×2 (09:53→17:47)
[2017-02-11] MEDS: PRAZOSIN 1 MG CAPSULE PO SCH (21:10)
[2017-02-11] MEDS: TRAZODONE 50MG TABLET PO SCH (21:11)
[2017-02-11] MEDS: NICOTINE 7 MG/24 HR PATCH.TD24 TD SCH (21:14)
[2017-02-11 22:59] VITALS: BP 137/81
[2017-02-11 23:30] VITALS: BP 137/81
[2017-02-11 23:31] VITALS: BP 137/81
[2017-02-12] MEDS: ASPIRIN 81 MG TABLET EC PO SCH (06:11)
[2017-02-12 07:36] VITALS: BP 160/101
[2017-02-12] MEDS: APIXABAN 5 MG TABLET PO SCH ×2 (08:41→21:09)
[2017-02-12] MEDS: MAGNESIUM OXIDE 400 MG TABLET PO SCH ×2 (08:41→21:10)
[2017-02-12] MEDS: AMLODIPINE 5 MG TABLET PO SCH (08:42)
[2017-02-12] MEDS: OMEPRAZOLE 20 MG CAPSULE.DR PO SCH (08:42)
[2017-02-12] MEDS: LISINOPRIL 20 MG TABLET PO SCH (08:42)
[2017-02-12] MEDS: SERTRALINE 50MG TABLET PO SCH (08:43)
[2017-02-12] MEDS: METOPROLOL SUCCINATE 25 MG TAB.ER.24H PO SCH ×2 (08:43→21:10)
[2017-02-12] MEDS: HYDROcodone/APAP 10/325 MG TABLET PO PRN ×3 (09:09→21:46)
[2017-02-12 19:48] VITALS: BP 129/73
[2017-02-12] MEDS: NICOTINE 7 MG/24 HR PATCH.TD24 TD SCH (21:00)
[2017-02-12] MEDS: TRAZODONE 50MG TABLET PO SCH (21:10)
[2017-02-12] MEDS: PRAZOSIN 1 MG CAPSULE PO SCH (21:10)
[2017-02-13] MEDS: ASPIRIN 81 MG TABLET EC PO SCH (05:41)
[2017-02-13] MEDS: OXYcodone/APAP 10/325MG TABLET PO PRN (07:15)
[2017-02-13 07:50] VITALS: BP 143/83
[2017-02-13] MEDS: APIXABAN 5 MG TABLET PO SCH (09:24)
[2017-02-13] MEDS: AMLODIPINE 5 MG TABLET PO SCH (09:25)
[2017-02-13] MEDS: MAGNESIUM OXIDE 400 MG TABLET PO SCH ×2 (09:25→20:30)
[2017-02-13] MEDS: OMEPRAZOLE 20 MG CAPSULE.DR PO SCH (09:26)
[2017-02-13] MEDS: LISINOPRIL 20 MG TABLET PO SCH (09:26)
[2017-02-13] MEDS: METOPROLOL SUCCINATE 25 MG TAB.ER.24H PO SCH ×2 (09:26→20:30)
[2017-02-13] MEDS: SERTRALINE 50MG TABLET PO SCH (09:27)
[2017-02-13] MEDS: CYCLOBENZAPRINE 10 MG TABLET PO PRN ×2 (09:52→20:31)
[2017-02-13 20:00] VITALS: BP 134/79
[2017-02-13] MEDS: PRAZOSIN 1 MG CAPSULE PO SCH (20:30)
[2017-02-13] MEDS: HYDROcodone/APAP 10/325 MG TABLET PO PRN (20:31)
[2017-02-13] MEDS ORDERED: TRAZODONE 50MG TABLET PO SCH (21:00)
[2017-02-13] MEDS: NICOTINE 7 MG/24 HR PATCH.TD24 TD SCH (21:00)
[2017-02-13] MEDS ORDERED: APIXABAN 5 MG TABLET PO SCH (21:00)
== END 2017-02-14 03:45 | DRG 885 ==
LOC: ED 13:57 → EDIP 13:59 → 5SO 15:39 → 4WST 02-07 20:08 → 4EST 02-11 06:26 → 3E 02-11 22:57
PROVIDERS: ADMIT Hospitalist; ATTEND Hospitalist
PROC: HZ34ZZZ Individual Counseling for Substance Abuse Treatment, Interpersonal (ICD-10-PCS; principal; 2017-02-06)
DX: F33.2 Major depressive disorder, recurrent severe without psychotic features (principal); R45.851 Suicidal ideations; D64.9 Anemia, unspecified; D75.89 Other specified diseases of blood and blood-forming organs; E78.5 Hyperlipidemia, unspecified; E83.42 Hypomagnesemia; E86.0 Dehydration; F43.10 Post-traumatic stress disorder, unspecified; M54.5 Low back pain; G89.29 Other chronic pain; I10 Essential (primary) hypertension; I25.10 Atherosclerotic heart disease of native coronary artery without angina pectoris; R07.9 Chest pain, unspecified; F17.200 Nicotine dependence, unspecified, uncomplicated; K76.0 Fatty (change of) liver, not elsewhere classified; K21.9 Gastro-esophageal reflux disease without esophagitis; Z79.01 Long term (current) use of anticoagulants; Z81.1 Family history of alcohol abuse and dependence; Z82.49 Family history of ischemic heart disease and other diseases of the circulatory system; Z83.3 Family history of diabetes mellitus; Z86.711 Personal history of pulmonary embolism; Z88.5 Allergy status to narcotic agent; Z91.041 Radiographic dye allergy status; Z91.14 Patient's other noncompliance with medication regimen; Z91.5 Personal history of self-harm; Z95.5 Presence of coronary angioplasty implant and graft; Z79.899 Other long term (current) drug therapy; Z88.8 Allergy status to other drugs, medicaments and biological substances; Z72.89 Other problems related to lifestyle; Z71.6 Tobacco abuse counseling
CPT/HCPCS: 36415; 71010; 71275; 74000; 76700; 80053; 80307; 80329; 81001; 83690; 83735; 83880; 84484; 85025; 85610; 93005; 93308; 93321; 93325; 96361; 96372; 96374; 96375; J1170; J2405; G0480; J1200; J2060; J2930; J3475; J7030; Q0163

== ENCOUNTER 2017-04-21 01:13 | Emergency (ER) | payer MEDICAID, MEDICARE ==
[~2017-04-21] VITALS: Ht 177.8 cm; Wt 118.2 kg
[~2017-04-21 01:13] MED LIST changes: +PRAZ2CAP2 PO
[2017-04-21] MEDS ORDERED: SODIUM CHLORIDE 0.9% 1,000ML IVBOLUS ONE (01:30)
[2017-04-21] MEDS ORDERED: MORPHINE SULFATE 4 MG/ML, 1ML IVPush PRN (01:30)
[2017-04-21] MEDS ORDERED: SODIUM CHLORIDE FLUSH 10ML SYR IVF ONE (01:30)
[2017-04-21] MEDS ORDERED: ONDANSETRON 2MG/ML, 2ML ONE (01:37)
[2017-04-21] MEDS ORDERED: MORPHINE SULFATE 4 MG/ML, 1ML ONE (01:37)
[2017-04-21] MEDS ORDERED: HYDROmorphone 1 MG/ML, 1ML ONE (01:39)
[2017-04-21] MEDS ORDERED: ONDANSETRON ODT 4 MG ONE (01:52)
[2017-04-21] MEDS ORDERED: ONDANSETRON 2MG/ML, 2ML IVPush ONE (02:00)
[2017-04-21] MEDS ORDERED: HYDROmorphone 1 MG/ML, 1ML IV ONE (02:00)
[2017-04-21] MEDS ORDERED: ONDANSETRON ODT 4 MG PO ONE (02:00)
[2017-04-21] MEDS ORDERED: HYDROmorphone 1 MG/ML, 1ML IM ONE (02:00)
[2017-04-21 02:06] LABS: ASPARTATE AMINO TRANSFERASE 16 U/L (15-37); BLOOD UREA NITROGEN 12 mg/dL (7-18)
[2017-04-21 02:17] LABS: IS PT STATUS REG ER OR PRE ER? YES
[2017-04-21] MEDS ORDERED: NITR0.3T5 SL (02:24)
[2017-04-21] MEDS ORDERED: ASPI-496 PO (02:24)
[2017-04-21] MEDS ORDERED: PROMETHAZINE 25 MG/ML, 1ML ONE (02:40)
[2017-04-21] MEDS ORDERED: PROMETHAZINE 25 MG/ML, 1ML IM ONE (03:00)
[2017-04-21] MEDS ORDERED: OXYcodone/APAP 10/325MG TABLET PO ONE (04:00)
[2017-04-21] MEDS ORDERED: RIVAROXABAN 15 MG TABLET PO ONE (04:00)
[2017-04-21] MEDS ORDERED: RIVAROXABAN 20 MG TABLET PO ONE (04:00)
[2017-04-21] MEDS ORDERED: OXYcodone/APAP 10/325MG TABLET ONE (04:01)
[2017-04-21 04:09] LABS: IS PT STATUS REG ER OR PRE ER? YES
[2017-04-21 04:53] VITALS: BP 125/75
== END 2017-04-21 04:55 | disposition home or self-care (01) ==
LOC: ED 03:10
DX: R07.2 Precordial pain (principal); R11.2 Nausea with vomiting, unspecified; E78.5 Hyperlipidemia, unspecified; I10 Essential (primary) hypertension; I25.2 Old myocardial infarction; K21.9 Gastro-esophageal reflux disease without esophagitis; Z86.711 Personal history of pulmonary embolism; I25.10 Atherosclerotic heart disease of native coronary artery without angina pectoris; Z90.49 Acquired absence of other specified parts of digestive tract; Z91.041 Radiographic dye allergy status
CPT/HCPCS: 36415; 71020; 80053; 84484; 85025; 93005; 96372; 99285; J1170; J2550; Q0162

== ENCOUNTER 2017-04-28 00:13 | Emergency (ER) | payer MEDICARE ==
[~2017-04-28] VITALS: Ht 177.8 cm; Wt 120.0 kg
[~2017-04-28 00:13] MED LIST changes: +ASPI-496 PO; +NITR0.3T5 SL
[2017-04-28] MEDS ORDERED: DIPHENHYDRAMINE 25 MG CAPSULE ONE (00:44)
[2017-04-28] MEDS ORDERED: DIPHENHYDRAMINE 25 MG CAPSULE PO ONE (01:00)
[2017-04-28 01:14] VITALS: BP 182/119
== END 2017-04-28 01:18 | disposition home or self-care (01) ==
LOC: ED 01:12
DX: S80.861A Insect bite (nonvenomous), right lower leg, initial encounter (principal); S60.561A Insect bite (nonvenomous) of right hand, initial encounter; S60.562A Insect bite (nonvenomous) of left hand, initial encounter; R21 Rash and other nonspecific skin eruption; I10 Essential (primary) hypertension; I25.10 Atherosclerotic heart disease of native coronary artery without angina pectoris; K21.9 Gastro-esophageal reflux disease without esophagitis; F17.210 Nicotine dependence, cigarettes, uncomplicated; Z90.49 Acquired absence of other specified parts of digestive tract; Z95.5 Presence of coronary angioplasty implant and graft; Z91.041 Radiographic dye allergy status; Z88.8 Allergy status to other drugs, medicaments and biological substances; Z88.5 Allergy status to narcotic agent; W57.XXXA Bitten or stung by nonvenomous insect and other nonvenomous arthropods, initial encounter; Y93.89 Activity, other specified; Y99.8 Other external cause status; Y92.89 Other specified places as the place of occurrence of the external cause
CPT/HCPCS: 99283; Q0163

== ENCOUNTER 2017-05-08 07:54 | Inpatient (IN) | payer MEDICARE, MEDICAID ==
[~2017-05-08] VITALS: Ht 177.8 cm; Wt 115.0 kg
[~2017-05-08 07:54] MED LIST changes: -CLOP75TA22 PO; +CLOP75TA52 PO; +METO-282 PO; -METO25TA9 PO; +NICO-486 TD; -NICO1PAT4 TD
[2017-05-08] MEDS ORDERED: SODIUM CHLORIDE 0.9% 1,000 ML IV ONE (08:25)
[2017-05-08] MEDS ORDERED: THIAMINE 100 MG in SODIUM CHLORIDE 0.9% 50 ML IVPB ONE (08:30)
[2017-05-08] MEDS ORDERED: ASPIRIN 81 MG TABLET CHEW PO ONE (08:30)
[2017-05-08] MEDS ORDERED: LORazepam 2 MG/ML, 1ML ONE (08:56)
[2017-05-08] MEDS: LORazepam 2 MG/ML, 1ML IVPush PRN ×2 (09:25→09:54)
[2017-05-08 09:27] LABS: HEMATOCRIT 42.2 % (39.2-51.8); HEMOGLOBIN 13.5 g/dL (13.7-18.0); WHITE BLOOD COUNT 14.9 x10^3/uL (3.4-10)
[2017-05-08] MEDS ORDERED: FAMOTIDINE 20 MG/2 ML ONE (09:29)
[2017-05-08] MEDS ORDERED: FAMOTIDINE 20 MG/2 ML IVPush ONE (09:30)
[2017-05-08 09:32] LABS: DAU SCREEN DISCLAIMER
[2017-05-08 09:37] LABS: ASPARTATE AMINO TRANSFERASE 19 U/L (15-37); BLOOD UREA NITROGEN 15 mg/dL (7-18)
[2017-05-08 09:41] LABS: ACETAMINOPHEN < 2 mcg/mL (10-30)
[2017-05-08 09:42] LABS: IS PT STATUS REG ER OR PRE ER? YES
[2017-05-08] MEDS ORDERED: POTASSIUM CHLORIDE 20 MEQ in SODIUM CHLORIDE 0.9% 250 ML IV ONE (10:00)
[2017-05-08] MEDS ORDERED: POTASSIUM CHLORIDE 20 MEQ TAB.ER.PRT PO ONE (11:30)
[2017-05-08] MEDS ORDERED: LORazepam 2 MG/ML, 1ML IV PRN ×5 (12:00)
[2017-05-08] MEDS ORDERED: LORazepam 1MG TABLET PO PRN ×3 (12:00)
[2017-05-08] MEDS ORDERED: LORazepam 0.5MG TABLET PO PRN (12:00)
[2017-05-08 14:30] VITALS: BP 155/92
[2017-05-08] MEDS: SODIUM CHLORIDE 0.9% 1,000 ML IV SCH ×2 (14:40→21:42)
[2017-05-08] MEDS ORDERED: ONDANSETRON 2MG/ML, 2ML IVPush PRN (15:00)
[2017-05-08] MEDS ORDERED: ONDANSETRON ODT 4 MG PO PRN (15:00)
[2017-05-08] MEDS ORDERED: NITROGLYCERIN 0.4 MG/SPRAY SL PRN (15:00)
[2017-05-08] MEDS: LORazepam 1MG TABLET PO PRN ×2 (15:27→21:39)
[2017-05-08] MEDS ORDERED: MAGNESIUM SULFATE PMX 2GM/50ML 50 ML IV ONE (15:30)
[2017-05-08] MEDS: NICOTINE 14MG/24 HR PATCH.TD24 TD SCH (15:30)
[2017-05-08] MEDS: FOLIC ACID 1 MG TABLET PO SCH (16:00)
[2017-05-08] MEDS: ENOXAPARIN 120MG/0.8ML SQ SCH (17:00)
[2017-05-08 17:56] VITALS: BP 155/92
[2017-05-08 19:02] VITALS: BP 137/88
[2017-05-08] MEDS: APIXABAN 5 MG TABLET PO SCH (21:00)
[2017-05-08] MEDS: METOPROLOL SUCCINATE 25 MG TAB.ER.24H PO SCH (21:00)
[2017-05-08] MEDS: FAMOTIDINE 20 MG/2 ML IVPush SCH (21:00)
[2017-05-08] MEDS: SIMVASTATIN 40 MG TABLET PO SCH (21:00)
[2017-05-08] MEDS: DULOXETINE 30 MG CAPSULE.DR PO SCH (21:00)
[2017-05-09] VITALS (8 sets, daily range): BP systolic 135–164; BP diastolic 81–105
[2017-05-09] MEDS: LORazepam 1MG TABLET PO PRN ×3 (02:16→09:19)
[2017-05-09] MEDS: APIXABAN 5 MG TABLET PO SCH ×2 (03:00→03:05)
[2017-05-09] MEDS: NITROGLYCERIN 0.4 MG BOTTLE (25 TABS) SL PRN ×3 (03:01→03:15)
[2017-05-09] MEDS: HYDROmorphone 1 MG/ML, 1ML IV PRN ×4 (04:22→20:28)
[2017-05-09 04:33] LABS: HEMATOCRIT 37.8 % (39.2-51.8); HEMOGLOBIN 11.9 g/dL (13.7-18.0); WHITE BLOOD COUNT 8.3 x10^3/uL (3.4-10)
[2017-05-09 04:44] LABS: ASPARTATE AMINO TRANSFERASE 18 U/L (15-37); BLOOD UREA NITROGEN 19 mg/dL (7-18)
[2017-05-09 04:49] LABS: FERRITIN 13.4 ng/mL (26-388); TOTAL IRON BINDING CAPACITY 351 mcg/dL (250-450); TRANSFERRIN 235 mg/dL (200-360)
[2017-05-09 04:56] LABS: IS PT STATUS REG ER OR PRE ER? NO
[2017-05-09] MEDS: ENOXAPARIN 120MG/0.8ML SQ SCH (05:52)
[2017-05-09] MEDS: SODIUM CHLORIDE 0.9% 1,000 ML IV SCH ×3 (05:52→21:56)
[2017-05-09] MEDS: ASPIRIN 325 MG TABLET PO SCH (05:52)
[2017-05-09] MEDS: FAMOTIDINE 20 MG/2 ML IVPush SCH ×2 (06:14→20:28)
[2017-05-09] MEDS: AMLODIPINE 5 MG TABLET PO SCH (08:55)
[2017-05-09] MEDS: FOLIC ACID 1 MG TABLET PO SCH (08:55)
[2017-05-09] MEDS: MULTIVIT.W/IRON, MINERALS ORAL SOL PO SCH (08:55)
[2017-05-09] MEDS: DULOXETINE 30 MG CAPSULE.DR PO SCH ×2 (08:55→20:28)
[2017-05-09] MEDS: METOPROLOL SUCCINATE 25 MG TAB.ER.24H PO SCH ×2 (08:56→20:29)
[2017-05-09] MEDS: THIAMINE 100MG TABLET PO SCH (08:56)
[2017-05-09 10:38] LABS: IS PT STATUS REG ER OR PRE ER? NO
[2017-05-09] MEDS ORDERED: KETOROLAC 30 MG/1 ML IVPush PRN (11:00)
[2017-05-09] MEDS: LORazepam 2 MG/ML, 1ML IVPush PRN ×2 (14:49→22:01)
[2017-05-09] MEDS: NICOTINE 14MG/24 HR PATCH.TD24 TD SCH (15:30)
[2017-05-09] MEDS: SIMVASTATIN 40 MG TABLET PO SCH (20:28)
[2017-05-10 01:41] VITALS: BP 152/106
[2017-05-10 02:27] LABS: OCCBLD OBC PASS
[2017-05-10] MEDS: HYDROmorphone 1 MG/ML, 1ML IV PRN ×4 (02:27→22:35)
[2017-05-10] MEDS: metroNIDAZOLE 500 MG TABLET PO SCH ×4 (03:30→21:53)
[2017-05-10] MEDS: LORazepam 2 MG/ML, 1ML IVPush PRN ×2 (03:54→22:00)
[2017-05-10 05:21] VITALS: BP 127/96
[2017-05-10] MEDS: ASPIRIN 325 MG TABLET PO SCH (06:00)
[2017-05-10] MEDS: SODIUM CHLORIDE 0.9% 1,000 ML IV SCH ×2 (06:33→14:40)
[2017-05-10] MEDS: FAMOTIDINE 20 MG/2 ML IVPush SCH ×2 (09:53→21:53)
[2017-05-10] MEDS: MULTIVIT.W/IRON, MINERALS ORAL SOL PO SCH (09:53)
[2017-05-10] MEDS: THIAMINE 100MG TABLET PO SCH (09:53)
[2017-05-10] MEDS: FOLIC ACID 1 MG TABLET PO SCH (09:53)
[2017-05-10] MEDS: DULOXETINE 30 MG CAPSULE.DR PO SCH ×2 (09:53→21:53)
[2017-05-10] MEDS: AMLODIPINE 5 MG TABLET PO SCH (09:53)
[2017-05-10] MEDS: APIXABAN 5 MG TABLET PO SCH ×2 (09:54→21:53)
[2017-05-10] MEDS: METOPROLOL SUCCINATE 25 MG TAB.ER.24H PO SCH ×2 (09:54→21:53)
[2017-05-10] MEDS: LACTOBACILLUS CHEW TABLET PO SCH ×3 (13:00→21:53)
[2017-05-10 13:19] VITALS: BP 138/81
[2017-05-10] MEDS: NICOTINE 14MG/24 HR PATCH.TD24 TD SCH (15:30)
[2017-05-10 20:33] VITALS: BP 136/88
[2017-05-10] MEDS: SIMVASTATIN 40 MG TABLET PO SCH (21:53)
[2017-05-11 02:06] VITALS: BP 135/88
[2017-05-11] MEDS: HYDROmorphone 1 MG/ML, 1ML IV PRN ×4 (04:30→21:58)
[2017-05-11] MEDS: ASPIRIN 325 MG TABLET PO SCH (05:49)
[2017-05-11] MEDS: LORazepam 2 MG/ML, 1ML IVPush PRN (05:49)
[2017-05-11] MEDS: LACTOBACILLUS CHEW TABLET PO SCH ×4 (05:49→21:59)
[2017-05-11 07:05] VITALS: BP 135/57
[2017-05-11] MEDS: MULTIVIT.W/IRON, MINERALS ORAL SOL PO SCH (09:38)
[2017-05-11] MEDS: FAMOTIDINE 20 MG/2 ML IVPush SCH (09:38)
[2017-05-11] MEDS: DULOXETINE 30 MG CAPSULE.DR PO SCH ×2 (09:38→21:00)
[2017-05-11] MEDS: FOLIC ACID 1 MG TABLET PO SCH (09:39)
[2017-05-11] MEDS: AMLODIPINE 5 MG TABLET PO SCH (09:39)
[2017-05-11] MEDS: THIAMINE 100MG TABLET PO SCH (09:39)
[2017-05-11] MEDS: METOPROLOL SUCCINATE 25 MG TAB.ER.24H PO SCH ×2 (09:39→21:59)
[2017-05-11] MEDS: metroNIDAZOLE 500 MG TABLET PO SCH ×3 (09:39→21:59)
[2017-05-11] MEDS: APIXABAN 5 MG TABLET PO SCH ×2 (09:39→21:59)
[2017-05-11 13:07] VITALS: BP 134/86
[2017-05-11 20:21] VITALS: BP 151/85
[2017-05-11] MEDS: SIMVASTATIN 40 MG TABLET PO SCH (21:59)
[2017-05-11] MEDS: PRAZOSIN 2 MG CAPSULE PO SCH (21:59)
[2017-05-12 01:44] VITALS: BP 133/86
[2017-05-12] MEDS: ASPIRIN 325 MG TABLET PO SCH (04:13)
[2017-05-12] MEDS: LACTOBACILLUS CHEW TABLET PO SCH ×4 (04:13→20:40)
[2017-05-12] MEDS: HYDROmorphone 1 MG/ML, 1ML IV PRN ×4 (04:13→22:46)
[2017-05-12] MEDS: LORazepam 2 MG/ML, 1ML IVPush PRN (06:16)
[2017-05-12] MEDS: MULTIVIT.W/IRON, MINERALS ORAL SOL PO SCH (09:29)
[2017-05-12] MEDS: APIXABAN 5 MG TABLET PO SCH ×2 (09:30→20:54)
[2017-05-12] MEDS: DULOXETINE 30 MG CAPSULE.DR PO SCH ×2 (09:30→20:40)
[2017-05-12] MEDS: THIAMINE 100MG TABLET PO SCH (09:30)
[2017-05-12] MEDS: FOLIC ACID 1 MG TABLET PO SCH (09:30)
[2017-05-12] MEDS: METOPROLOL SUCCINATE 25 MG TAB.ER.24H PO SCH ×2 (09:30→20:41)
[2017-05-12] MEDS: AMLODIPINE 5 MG TABLET PO SCH (09:30)
[2017-05-12] MEDS: metroNIDAZOLE 500 MG TABLET PO SCH ×3 (09:30→20:40)
[2017-05-12 11:00] VITALS: BP 137/88
[2017-05-12 14:49] VITALS: BP 119/76
[2017-05-12 20:19] VITALS: BP 138/82
[2017-05-12] MEDS: PRAZOSIN 2 MG CAPSULE PO SCH (20:40)
[2017-05-12] MEDS: SIMVASTATIN 40 MG TABLET PO SCH (20:54)
[2017-05-13 03:01] VITALS: BP 166/106
[2017-05-13 03:03] VITALS: BP 133/88
[2017-05-13] MEDS: HYDROmorphone 1 MG/ML, 1ML IV PRN ×4 (04:54→23:05)
[2017-05-13] MEDS: ASPIRIN 325 MG TABLET PO SCH (06:13)
[2017-05-13] MEDS: LACTOBACILLUS CHEW TABLET PO SCH ×4 (06:17→22:29)
[2017-05-13 07:30] VITALS: BP 144/82
[2017-05-13] MEDS: MULTIVIT.W/IRON, MINERALS ORAL SOL PO SCH (08:57)
[2017-05-13] MEDS: THIAMINE 100MG TABLET PO SCH (08:57)
[2017-05-13] MEDS: APIXABAN 5 MG TABLET PO SCH ×2 (08:58→22:29)
[2017-05-13] MEDS: FOLIC ACID 1 MG TABLET PO SCH (08:58)
[2017-05-13] MEDS: metroNIDAZOLE 500 MG TABLET PO SCH ×3 (08:58→22:29)
[2017-05-13] MEDS: AMLODIPINE 5 MG TABLET PO SCH (08:58)
[2017-05-13] MEDS: METOPROLOL SUCCINATE 25 MG TAB.ER.24H PO SCH ×2 (08:59→22:29)
[2017-05-13] MEDS: DULOXETINE 30 MG CAPSULE.DR PO SCH ×2 (09:17→22:29)
[2017-05-13] MEDS: FERROUS SULFATE 325 MG TABLET PO SCH ×2 (11:11→16:26)
[2017-05-13] MEDS: ASCORBIC ACID 500 MG TABLET PO SCH (11:11)
[2017-05-13 16:00] VITALS: BP 123/67
[2017-05-13 18:56] LABS: IS PT STATUS REG ER OR PRE ER? NO
[2017-05-13 20:00] VITALS: BP 112/71
[2017-05-13] MEDS: SIMVASTATIN 40 MG TABLET PO SCH (22:29)
[2017-05-13] MEDS: PRAZOSIN 2 MG CAPSULE PO SCH (22:30)
[2017-05-14 01:18] VITALS: BP 101/64
[2017-05-14] MEDS: LACTOBACILLUS CHEW TABLET PO SCH ×3 (05:13→15:27)
[2017-05-14] MEDS: ASPIRIN 325 MG TABLET PO SCH (05:13)
[2017-05-14] MEDS: HYDROmorphone 1 MG/ML, 1ML IV PRN ×2 (05:13→11:32)
[2017-05-14] MEDS: METOPROLOL SUCCINATE 25 MG TAB.ER.24H PO SCH (08:37)
[2017-05-14] MEDS: ASCORBIC ACID 500 MG TABLET PO SCH (08:37)
[2017-05-14] MEDS: DULOXETINE 30 MG CAPSULE.DR PO SCH (08:37)
[2017-05-14] MEDS: AMLODIPINE 5 MG TABLET PO SCH (08:37)
[2017-05-14] MEDS: APIXABAN 5 MG TABLET PO SCH (08:37)
[2017-05-14] MEDS: MULTIVIT.W/IRON, MINERALS ORAL SOL PO SCH (08:37)
[2017-05-14] MEDS: FOLIC ACID 1 MG TABLET PO SCH (08:37)
[2017-05-14] MEDS: FERROUS SULFATE 325 MG TABLET PO SCH ×3 (08:37→16:57)
[2017-05-14] MEDS: metroNIDAZOLE 500 MG TABLET PO SCH ×2 (08:37→15:27)
[2017-05-14] MEDS: THIAMINE 100MG TABLET PO SCH (08:37)
[2017-05-14 10:09] VITALS: BP 128/80
[2017-05-14 14:19] VITALS: BP 131/83
[2017-05-16] MEDS ORDERED: APIXABAN 5 MG TABLET PO SCH (21:00)
[2017-05-20] MEDS ORDERED: APIXABAN 5 MG TABLET PO SCH (09:00)
== END 2017-05-15 00:44 | disposition left against medical advice (07) | DRG 176 ==
LOC: ED 09:27 → EDIP 11:36 → 4EST 15:06 → 4WST 05-13 11:54
PROVIDERS: ADMIT Internal Medicine; ATTEND Internal Medicine
DX: I26.99 Other pulmonary embolism without acute cor pulmonale (principal); E44.0 Moderate protein-calorie malnutrition; R45.851 Suicidal ideations; R65.10 Systemic inflammatory response syndrome (SIRS) of non-infectious origin without acute organ dysfunction; A04.7 Enterocolitis due to Clostridium difficile; F33.2 Major depressive disorder, recurrent severe without psychotic features; K76.0 Fatty (change of) liver, not elsewhere classified; E87.1 Hypo-osmolality and hyponatremia; F10.229 Alcohol dependence with intoxication, unspecified; D50.9 Iron deficiency anemia, unspecified; I10 Essential (primary) hypertension; F41.9 Anxiety disorder, unspecified; D53.9 Nutritional anemia, unspecified; E78.5 Hyperlipidemia, unspecified; E66.9 Obesity, unspecified; F17.210 Nicotine dependence, cigarettes, uncomplicated; K21.9 Gastro-esophageal reflux disease without esophagitis; Z66 Do not resuscitate; E83.42 Hypomagnesemia; E86.0 Dehydration; E87.6 Hypokalemia; F33.41 Major depressive disorder, recurrent, in partial remission; F43.10 Post-traumatic stress disorder, unspecified; F43.21 Adjustment disorder with depressed mood; I25.10 Atherosclerotic heart disease of native coronary artery without angina pectoris; I25.2 Old myocardial infarction; Z79.01 Long term (current) use of anticoagulants; Z81.1 Family history of alcohol abuse and dependence; Z86.711 Personal history of pulmonary embolism; Z91.19 Patient's noncompliance with other medical treatment and regimen; Z95.5 Presence of coronary angioplasty implant and graft; Z68.36 Body mass index [BMI] 36.0-36.9, adult; Z71.6 Tobacco abuse counseling; Z91.5 Personal history of self-harm; Z90.49 Acquired absence of other specified parts of digestive tract; Z88.6 Allergy status to analgesic agent; Z88.4 Allergy status to anesthetic agent; Z88.8 Allergy status to other drugs, medicaments and biological substances; Z82.49 Family history of ischemic heart disease and other diseases of the circulatory system; Z83.3 Family history of diabetes mellitus; Z81.8 Family history of other mental and behavioral disorders; Z59.0 Homelessness
CPT/HCPCS: 36415; 71010; 80053; 80307; 80329; 81003; 82272; 82728; 83540; 83550; 83735; 84100; 84466; 84484; 85025; 85610; 85730; 87324; 87493; 93005; 93306; 96365; 96366; 96375; J1170; J1650; J3411; J3480; G0479; G0480; J2060; J7030; J7050; S0028